=== PATIENT | female | born 1955 | race Caucasian/White ===

== ENCOUNTER → 2016-08-17 | Outpatient (CLI) | payer MEDICARE, OTHER, MEDICAID ==
[~2016-08-17] MED LIST: BUPR75TA9 PO; DIVA125C2 PO; DOCU100C26 PO; HYDR-3498 PO
--- NOTE | 2016-08-17 13:46 | RADRPT ---
PROCEDURE: XR Chest. CLINICAL INDICATION: Preoperative evaluation, cough TECHNIQUE: Single frontal chest x-ray. COMPARISON: 06/22/2016 FINDINGS: No acute infiltrate, pleural effusion or pneumothorax is identified. There is stable mild cardiomeg hortencia. Aortic atherosclerotic calcification is noted. The osseous structures are remarkable for dege nerative spondylosis of the spine. Surgical clips are noted in the region of the gastroesophageal j unction. IMPRESSION: 1. Stable mild cardiomegaly and aortic atherosclerosis. 2. No evidence of acute cardiopulmonary process. RPTAT: QQ .Ankti Doe MD, Date Time Electronically viewed and signed by .Ankit Doe MD, on 08/17/2016 13:46 .R/
== END | disposition home or self-care (01) ==
LOC: RAD 09:14
PROVIDERS: ATTEND Internal Medicine
DX: Z01.818 Encounter for other preprocedural examination (principal); R05 Cough; I51.7 Cardiomegaly
CPT/HCPCS: 71010

== ENCOUNTER 2016-10-15 09:23 | Day surgery (SDC) | payer MEDICARE, OTHER ==
[2016-10-14 13:27] VITALS: BMI 26.8
[~2016-10-15] VITALS: Ht 157.5 cm; Wt 76.0 kg
[2016-10-15] VITALS (7 sets, daily range): BP systolic 126–158; BP diastolic 58–69; PULSE 54–65; RESP 14–18; Ht 157.5 cm; Wt 76.0 kg
[~2016-10-15 09:23] MED LIST changes: +CEFAZOLIN 1 GM INJ ONE; +PROPOFOL 200 MG INJ ONE
[2016-10-15] MEDS ORDERED: EPHEDrine SULFATE 50 MG/5 ML SYG ONE (12:51)
[2016-10-15] MEDS ORDERED: FENTAnyl 50 MCG/ML VIAL ONE (12:51)
[2016-10-15] MEDS ORDERED: MIDAZOLAM 1 MG/ML 2 ML INJ ONE (12:51)
[2016-10-15] MEDS ORDERED: DEXAMETHASONE 4 MG/ML 1 ML INJ ONE (13:39)
[2016-10-15] MEDS ORDERED: ONDANSETRON 4 MG INJ ONE (13:39)
--- NOTE | 2016-10-15 13:57 | QN ---
Documentation Comment Notify MD before discharge HILDA NICHOLAS MD Oct 15, 2016 13:57
[2016-10-15] MEDS ORDERED: ONDANSETRON 4 MG INJ IV PRN (14:00)
[2016-10-15] MEDS ORDERED: KETOROLAC 30 MG INJ IV PRN (14:00)
[2016-10-15] MEDS ORDERED: MEPERIDINE 25 MG INJ IV PRN (14:00)
[2016-10-15] MEDS ORDERED: IBUPROFEN 600 MG TAB PO PRN (14:00)
[2016-10-15] MEDS ORDERED: KETOROLAC 30 MG INJ IV ONE (14:00)
[2016-10-15] MEDS ORDERED: morphine (1 MG/ML) 10ML SYRINGE IV PRN ×2 (14:00)
[2016-10-15] MEDS ORDERED: DIPHENHYDRAMINE 50 MG INJ IV PRN (14:00)
--- NOTE | 2016-10-15 14:04 | PDOCDIS ---
Discharge Instructions CONDITION Patient Condition: Good HOME CARE INSTRUCTIONS: Diet Instructions: Regular ACTIVITY: Activity Restrictions: No Restrictions Slowly Increase Activity No Sexual Activity Bathing Restrictions: Shower FOLLOW UP/APPOINTMENTS Appointments Appointment office in 1 week HILDA NICHOLAS MD Oct 15, 2016 14:04
--- NOTE | 2016-10-15 14:22 | OPR ---
DATE OF OPERATION: 10/15/2016 PREOPERATIVE DIAGNOSES: Thickened endometrium to the thickness of 10 mm. POSTOPERATIVE DIAGNOSIS: Pending pathology report. PROCEDURE PERFORMED: Diagnostic curettage. SURGEON: Hilda Bay MD ANESTHESIA: General. ANESTHESIOLOGIST: Jose Bourgeois MD DETAILS OF PROCEDURE: Under satisfactory general anesthesia, the patient was prepped and draped and placed in dorsal lithotomy position. 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 Cervix nulliparous. Uterus 8 weeks' size. Adnexa not palpable. L-shaped retractor was placed into the posterior vagina to enable to visualize the c ervix. Cervix grasped by a Alon tenaculum. Uterine cavity sounded, measured 9 cm. Cervical dilat ation further advanced with the Shaan dilator and endometrial curetting starting at 12 o'clock comple tely for 360 degrees of the uterine cavity. Very scant amount of specimen obtained, which was submi tted for the pathology. At the end of the procedure, the midline perineal incision was approximated and repaired 3-0 chromic catgut. Estimated blood loss less than a few mL. The patient tolerated the procedure well and transferred to recovery room. Dictated By: HILDA BRANNON/NTS Conf#: [id number] DID#: [id number]
--- NOTE | 2016-10-15 15:43 | RADRPT ---
Vent Rate: 53 bpm RR Interval: 0 msec ME Interval: 176 msec QRS Duration: 98 msec QT Interval: 458 msec QTC Interval: 429 msec P-R-T [place]: 50 - 39 - 32 degrees Sinus bradycardia Low voltage QRS Borderline ECG Electronically Signed By: Maynor Cruz [id number]
== END 2016-10-15 15:32 | disposition home or self-care (01) ==
LOC: SDS 09:23
PROVIDERS: ATTEND Obstetrics & Gynecology
DX: N84.0 Polyp of corpus uteri (principal); I10 Essential (primary) hypertension; E11.9 Type 2 diabetes mellitus without complications; E66.9 Obesity, unspecified; Z68.30 Body mass index [BMI] 30.0-30.9, adult
CPT/HCPCS: 58120; 88305; 93005; J0690; J1100; J2250; J2405; J3010

== ENCOUNTER 2018-01-19 11:24 | Emergency (ER) | END 2018-01-19 17:00 | disposition home or self-care (01) ==